=== PATIENT | female | born 1990 | race Caucasian/White ===

== ENCOUNTER 2016-06-21 09:56 | Emergency (ER) | payer BC, OTHER ==
[2016-06-21 10:23] VITALS: BP 141/88; PULSE 66; RESP 18; TEMP 98.2; O2SAT 99
--- NOTE | 2016-06-21 11:29 | UCPHY ---
H & P Time Seen by Provider: 06/21/16 10:45 Patient Type: New HPI/ROS: 26-year-old female presents complaining of left discomfort and fullness. She has had some cold symptoms. She otherwise feels well. One of her children had an ear infection and she is concerned that she may also have one. Review of systems As per HPI General no fever no chills no weakness HEENT no eye pain no eye discharge. No eye redness, no sore throat Respiratory no cough, no shortness of breath Cardiac no chest pain, no peripheral edema GI no abdominal pain, no diarrhea, no constipation, no nausea, no vomiting no flank pain, no hematuria, no dysuria Musculoskeletal no myalgias, no joint pain Heme no easy bruising, no easy bleeding Endo no polyuria, no polydipsia Skin no rashes, no pruritus Neuro no syncope, no dizziness, no headaches Psych is no suicidal ideation, no homicidal ideation Past Medical/Surgical History: Migraines Social History: No alcohol, no drugs Smoking Status: Never smoked Physical Exam: 26-year-old female alert and oriented no acute distress nontoxic appearance HEENT atraumatic normocephalic, extraocular muscles intact, anicteric Oropharynx negative for erythema negative exudate, tolerating her own secretions Neck supple no meningismus Lungs clear to auscultation bilaterally Heart regular rate and rhythm without murmur rub or gallop Abdomen nondistended normoactive bowel sounds soft nontender Back no CVA tenderness, no step-offs, no spinal tenderness Extremities no cyanosis clubbing or edema Neuro alert and oriented, no focal deficits Constitutional: Initial Vital Signs Temperature (C) 36.8 C 06/21/16 10:20 Heart Rate 66 06/21/16 10:20 Respiratory Rate 18 06/21/16 10:20 Blood Pressure 141/88 H 06/21/16 10:20 O2 Sat (%) 99 06/21/16 10:20 O2 Delivery Mode Room Air Allergies/Adverse Reactions: No Known Allergies Allergy (Verified 06/21/16 10:20) Home Medications: Medication Instructions Recorded Rizatriptan 05/10/16 Medical Decision Making ED Course/Re-evaluation: Patient seen and evaluated for left ear fullness, cold symptoms. Impression URI Plan Symptomatic care Follow-up PCP Departure - Departure Disposition: Home, Routine, Self-Care Clinical Impression: Upper respiratory infection Condition: Good Instructions: Upper Respiratory Infection (ED) Additional Instructions: consider a decongestant for the sensation of ear fullness drink lots of liquids [place]errals: [place],. [Primary Care Provider] - As per Instructions - PQRS PQRS Measurement: na
== END 2016-06-21 11:31 | disposition home or self-care (01) ==
LOC: CED 09:56
DX: J06.9 Acute upper respiratory infection, unspecified (principal)
CPT/HCPCS: G0463-PO